=== PATIENT | female | born 1975 | race Caucasian/White ===

== ENCOUNTER 2018-02-21 05:27 | Inpatient (IN) ==
[2018-02-21] MEDS ORDERED: Vancomycin Inj 1,250 MG in Sodium Chlor 0.9% Inj 250 ML IV.SIG PRN (06:02)
[2018-02-21] MEDS ORDERED: Chlorhexidine Gluconate 2% 1 Pack (2 Cloths) TOPICAL ONE (06:08)
[2018-02-21] MEDS ORDERED: Metoprolol Tartrate 25 MG Tablet PO ONE (06:08)
[2018-02-21] MEDS ORDERED: Sodium Chlor 0.9% Inj 500 ML IV.SIG SCH (07:00)
[2018-02-21] MEDS ORDERED: Bupivacaine/Epinephrine Inj 0.25% 50 ML Vial ONE (07:13)
[2018-02-21] MEDS ORDERED: Glycopyrrolate Inj 1 MG/5 ML Syringe IV.PUSH ONE (07:26)
[2018-02-21] MEDS ORDERED: Lidocaine PF 1% Inj 5 ML Syringe OTHER ONE (07:26)
[2018-02-21] MEDS ORDERED: Neostigmine Inj 5 MG/5 ML Syringe IV.PUSH ONE (07:26)
[2018-02-21] MEDS ORDERED: Sugammadex Inj 200 MG/2 ML Vial IV.PUSH ONE (09:10)
[2018-02-21] MEDS ORDERED: fentaNYL Citrate Inj 100 MCG/2 ML Ampul ONE (09:26)
[2018-02-21] MEDS ORDERED: diphenhydrAMINE HCl 12.5 MG/5 ML Elixir UDC PO PRN (09:27)
[2018-02-21] MEDS ORDERED: Post-op Orders (for Pharmacy) OTHER STA (09:27)
[2018-02-21] MEDS ORDERED: Morphine Inj 30 MG/30 ML PCA.VIAL PCA PRN (09:34)
[2018-02-21] MEDS ORDERED: Naloxone Inj 0.4 MG/ML Vial IV.PUSH PRN (09:34)
[2018-02-21] MEDS ORDERED: *Ondansetron Inj 4 MG/2 ML Vial PERIprocedural Use ONLY ONE (09:53)
[2018-02-21] MEDS ORDERED: *Promethazine Inj 25 MG/ML Vial PERIprocedural use ONLY ONE (09:59)
--- NOTE | 2018-02-21 10:21 | MP ---
cc: Atilio Bowen MD DATE OF OPERATION: 02/21/2018 PREOPERATIVE DIAGNOSES: Morbid obesity with a body mass index of 45 complicated by essential hypertension. POSTOPERATIVE DIAGNOSES: Morbid obesity with a body mass index of 45, complicated by essential hypertension. PROCEDURE PERFORMED: Laparoscopic Latricia-en-Y gastric bypass, 100 cm Latricia limb, antegastric, antecolic. SURGEON: Atilio Bowen MD. ANESTHESIA: General endotracheal anesthesia. ESTIMATED BLOOD LOSS: Less than 10 mL. FINDINGS: Thickened omentum. SPECIMENS: None. COMPLICATIONS: None. DESCRIPTION OF PROCEDURE: The patient was brought to the operating room and placed on the operating table in supine position, bilateral sequential inflation device placed on lower extremities, general anesthesia instituted, antibiotics initiated. The abdomen was prepped and draped sterilely. A point 18-cm distal to the xiphoid in the midline anesthetized with 0.25% Marcaine with epinephrine. The skin incision was made, a 5-mm OptiView port placed under direct vision and pneumoperitoneum was created. Under direct vision a 5-mm left upper quadrant, 12-mm left upper quadrant, 12-mm right upper quadrant and 5-mm right upper quadrant ports were placed. Prior to placement of all ports, the skin and peritoneum were anesthetized with 0.25% Marcaine with epinephrine. The patient's omentum was lifted into the upper abdomen. It was split down the middle to create a path for the Latricia limb. The ligament of Treitz was identified, a point 40 cm distal identified. The small bowel was divided in this region using an Philip Flex stapler vascular load reinforced with SeamGuard. The distal segment was brought up for a distance of 100 cm, enterotomy created in this region, enterotomy in the biliopancreatic limb and a [id number]-ha-[id number] stapled jejunojejunostomy created in the usual manner. The mesenteric defect at the jejunojejunostomy was closed with 2-0 Surgidac suture in a running manner. The patient was placed in reverse Trendelenburg position with the left side up. The Jeanine-Flex retractor was placed. The left lobe of the liver was retracted. The angle of His was taken down bluntly, a point 5 cm distal to the GE junction along the lesser curve identified, the lesser sac entered using blunt dissection. The stomach was partitioned horizontally using an Philip-Flex stapler blue load, an additional firing taken directed towards the angle of His to completely divide the stomach. A gastrotomy created in the new stomach, enterotomy in the Latricia limb and gastrojejunostomy created, stomal opening of 2 cm. An 18-Sinhala orogastric tube was placed across the anastomosis, the defect then closed in two layers of running 2-0 Vicryl. Prior to placement of the second layer, methylene blue instilled through the orogastric tube. There was no evidence of extravasation. Evicel was then placed over the gastrojejunostomy, jejunojejunostomy and all staple lines. The operative field inspected and hemostasis was present. The CO2 was released, all ports were removed. All skin incisions were closed with 4-0 Monocryl. The abdominal wall was cleaned and a sterile dressing placed. The patient was awakened and taken to the recovery room. MD DINA Abernathy/uma , 09:36 AM , 09:42 AM
[2018-02-21] MEDS: KCL 20 mEq/D5W/NaCl 0.45% Inj 1,000 ML IV.CONT SCH ×3 (10:38→19:28)
[2018-02-21] MEDS: Enoxaparin Inj 40 MG/0.4 ML Syringe SQ SCH (13:09)
[2018-02-21] MEDS: Vancomycin Inj 1,000 MG in Sodium Chlor 0.9% Inj 250 ML IV.SIG SCH (19:27)
[2018-02-22] MEDS: KCL 20 mEq/D5W/NaCl 0.45% Inj 1,000 ML IV.CONT SCH ×6 (00:15→20:36)
[2018-02-22] MEDS: Vancomycin Inj 1,000 MG in Sodium Chlor 0.9% Inj 250 ML IV.SIG SCH (06:30)
[2018-02-22 07:39] LABS: Calcium 7.9 mg/dL (8.5-10.1); Carbon Dioxide 27.5 meq/L (21.0-32.0)
[2018-02-22 07:42] LABS: White Blood Count 10.5 th/mm3 (4.0-11.0)
[2018-02-22 07:43] LABS: Baso % (Auto) 0.2 % (0.0-2.0); Hematocrit 40.3 % (35.0-46.0); Hemoglobin 13.5 gm/dL (11.6-15.3); Lymph # (Auto) 0.9 th/mm3 (1.0-4.8); Mean Corpuscular HGB Conc 33.5 % (32.0-36.0); Mean Corpuscular Hemoglobin 31.3 pg (27.0-34.0); Mean Corpuscular Volume 93.6 fL (80.0-100.0); Mean Platelet Volume 8.9 fL (7.0-11.0); Mono # (Auto) 0.5 th/mm3 (0.0-0.9); Mono % (Auto) 4.7 % (0.0-8.0); Neut % (Auto) 86.1 % (16.0-70.0); Platelet Count 245 th/mm3 (150-450); Red Blood Count 4.31 mil/mm3 (4.00-5.30); Red Cell Distribution Width 14.3 % (11.6-17.2)
[2018-02-22 08:14] LABS: Platelet Estimate Normal (Normal); Platelet Morphology Normal (Normal)
[2018-02-22] MEDS: Enoxaparin Inj 40 MG/0.4 ML Syringe SQ SCH (12:54)
[2018-02-22] MEDS: Potassium Chlor 20 mEq Premix 20 MEQ/100 ML PIGGYBACK IV.SIG SCH ×2 (12:54→22:06)
[2018-02-22] MEDS ORDERED: Potassium Chloride 25 MEQ Effervescent Tablet PO ONE (14:15)
--- NOTE | 2018-02-22 14:55 | P.PNGS ---
Subjective Patient reports: no new complaints, tolerating liquids well, flatus, no bowel movement Physical Exam Vital signs: Vital Signs 02/21/18 16:00 02/21/18 20:00 02/22/18 00:00 Temperature 99.5 F 98.1 F 97.9 F Pulse Rate 67 64 75 Respiratory Rate 18 17 18 Blood Pressure 129/73 110/64 112/69 Pulse Oximetry 93 L 92 L 95 02/22/18 04:00 02/22/18 08:00 02/22/18 11:43 Temperature 97.7 F 97.3 F L 97.8 F Pulse Rate 55 L 68 56 L Respiratory Rate 17 16 18 Blood Pressure 112/67 102/59 L 122/74 Pulse Oximetry 94 L 96 96 Intake & Output 02/21/18 02/22/18 02/22/18 18:59 06:59 18:59 Intake Total 2292.5 / 2292.5 2450 / 2450 250 / 250 Output Total 160 / 160 600 / 600 Balance 2132.5 / 2132.5 1850 / 1850 250 / 250 Weight 115.6 kg Intake: IV 2262.5 / 2262.5 2450 / 2450 250 / 250 D5W/1/2NS + KCL 20 mEq Inj 1, 600 / 600 2000 / 2000 000 ML @ 125 mls/hr IV.CONT . Q8H STACY Rx#:[id number] Ofirmev Inj 1,000 mg In 100 ml 400 / 400 @ 400 mls/hr IV.SIG BLOWING ENGINEER STACY Rx#:[id number] LR 1000 mL Inj 1,000 ML @ 30 800 / 800 mls/hr IV.SIG .Q24H STACY Rx#: [id number] Vancomycin Inj 1,000 MG In NS 250 / 250 250 / 250 Inj 250 ML @ 250 mls/hr IV.SIG Q12H STACY Rx#:[id number] Vancomycin Inj 1,250 MG In NS 262.5 / 262.5 Inj 250 ML @ 250 mls/hr IV.SIG BLOWING ENGINEER PRN Rx#:[id number] Flagyl 500 MG Inj 100 ML @ 200 200 / 200 200 / 200 mls/hr IV.SIG Q8H STACY Rx#: [id number] Oral 30 / 30 Output: Urine 150 / 150 600 / 600 Estimated Blood Loss Other: # Voids 3 Date of Last Bowel Movement 02/20/18 - Constitutional no acute distress - Routine Abdominal Exam Present: soft, tenderness Comments: incisional tenderness Results - Labs 02/22/18 06:10 02/22/18 06:10 Laboratory Results - last 24 hr 02/21/18 02/22/18 02/22/18 08:03 06:10 06:10 WBC 10.5 RBC 4.31 Hgb 13.5 Hct 40.3 MCV 93.6 MCH 31.3 MCHC 33.5 RDW 14.3 Plt Count 245 MPV 8.9 Prelim Diff (Auto) Slide review pending Neut % (Auto) 86.1 H Lymph % (Auto) 9.0 [place] % (Auto) 4.7 Eos % (Auto) 0.0 Baso % (Auto) 0.2 Neut # (Auto) 9.0 H Lymph # (Auto) 0.9 L [place] # (Auto) 0.5 Eos # (Auto) 0.0 Baso # (Auto) 0.0 WBC Differential . Diff Scan Auto diff confirmed Differential Comment . Platelet Estimate Normal Platelet Morphology Normal Sodium 139 Potassium 3.0 L Chloride 102 Carbon Dioxide 27.5 Anion Gap 10 BUN 8 Creatinine 0.76 Estimated GFR 83 L Random Glucose 117 H Calcium 7.9 L Magnesium 2.0 Rout Panel Path Interp Assessment and Plan - Assessment (1) Gastric bypass status for obesity Code(s): Z98.84 - Bariatric surgery status Status: Acute Plan: replace K cont liquids ambulate decrease IVF
[2018-02-22] MEDS: Acetaminophen-HYDROcodone 325/7.5 Liq 15 ML UDC PO PRN (15:56)
[2018-02-22] MEDS ORDERED: Melatonin 5 MG Tablet PO ONE (22:30)
[2018-02-23] MEDS: KCL 20 mEq/D5W/NaCl 0.45% Inj 1,000 ML IV.CONT SCH ×5 (05:07→15:31)
[2018-02-23] MEDS: Acetaminophen-HYDROcodone 325/7.5 Liq 15 ML UDC PO PRN ×2 (09:03→16:40)
[2018-02-23 10:49] VITALS: O2SAT 95
[2018-02-23 12:24] VITALS: BP 114/61; PULSE 56; RESP 17; TEMP 97.6
[2018-02-23] MEDS: Enoxaparin Inj 40 MG/0.4 ML Syringe SQ SCH (12:53)
== END 2018-02-23 17:46 | disposition home or self-care (01) ==
LOC: HSDI 05:27 → N07 15:00
PROVIDERS: ADMIT Surgery; ATTEND Surgery